=== PATIENT | male | born 1995 | race American Indian/Alaskan Native ===

== ENCOUNTER 2016-04-07 07:40 | Outpatient (CLI) | payer OTHER ==
[2016-04-07] MEDS ORDERED: PROVENTIL IH ONE (07:43)
== END 2016-04-07 07:41 | disposition home or self-care (01) ==
LOC: PF 07:40
PROVIDERS: ATTEND Internal Medicine
DX: J45.909 Unspecified asthma, uncomplicated (principal)
CPT/HCPCS: 94060